=== PATIENT | female | born 1990 | race Caucasian/White ===

== ENCOUNTER 2022-10-17 10:05 | Emergency (ER) | payer MEDICAID ==
[~2022-10-17] VITALS: Ht 157.5 cm; Wt 80.3 kg
[2022-10-17 10:12] VITALS: BP 139/89; PULSE 79; RESP 18; TEMP 98.3; O2SAT 97
[2022-10-17] MEDS ORDERED: LORATADINE 10 MG TAB PO ONE (10:30)
[2022-10-17] MEDS ORDERED: FAMOTIDINE 20 MG TAB PO ONE (10:30)
[2022-10-17] MEDS ORDERED: predniSONE 20 MG TAB PO ONE (10:30)
[2022-10-17 11:01] VITALS: O2SAT 97
[2022-10-17] MEDS ORDERED: LORA10TA19 PO (11:42)
[2022-10-17] MEDS ORDERED: PRED20TA5 PO (11:42)
[2022-10-17 11:53] VITALS: BP 139/89; PULSE 79; RESP 18; TEMP 98.3
== END 2022-10-17 11:58 | disposition home or self-care (01) ==
LOC: MED 10:05 → EDBD 10:05 → MED 11:58
DX: L50.0 Allergic urticaria (principal); Z79.899 Other long term (current) drug therapy
CPT/HCPCS: 99284; J7512

== ENCOUNTER 2022-10-19 01:00 | Emergency (ER) | payer MEDICAID ==
[~2022-10-19] VITALS: Ht 160 cm; Wt 81.6 kg
[~2022-10-19 01:00] MED LIST: LORA10TA19 PO; PRED20TA5 PO
[2022-10-19 01:10] VITALS: BP 129/96; PULSE 85; RESP 16; TEMP 97; O2SAT 99
[2022-10-19] MEDS ORDERED: diphenhydrAMINE 50 MG/ML VIAL IM ONE (03:45)
[2022-10-19] MEDS ORDERED: methylPREDNISolone SS 125 MG in WATER STERILE 2 ML IM ONE (03:45)
[2022-10-19] MEDS ORDERED: WATER STERILE 10 ML MC ONE (03:58)
[2022-10-19] MEDS ORDERED: methylPREDNISolone SS 125 MG/2 ML VIAL ONE (03:58)
[2022-10-19 04:10] VITALS: TEMP 97
[2022-10-19] MEDS ORDERED: BEN50 PO (06:02)
[2022-10-19 06:15] VITALS: BP 117/70; PULSE 77; RESP 18; O2SAT 96
== END 2022-10-19 06:15 | disposition home or self-care (01) ==
LOC: MED 01:00
DX: L50.9 Urticaria, unspecified (principal); Z79.899 Other long term (current) drug therapy
CPT/HCPCS: 96372; 99284; J1200; J2930